=== PATIENT | female | born 1945 | race Caucasian/White ===

== ENCOUNTER 2017-01-12 09:47 | Inpatient (IN) | payer MEDICARE, OTHER ==
[~2017-01-12] VITALS: Ht 157.5 cm; Wt 111.4 kg
[2017-01-12] MEDS ORDERED: LEVO25TA2 PO (10:08)
[2017-01-12] MEDS ORDERED: SODIUM CHLORIDE 0.9% 1,000 ML IV ONE (10:11)
[2017-01-12] MEDS ORDERED: DILTIAZEM 125 MG in DEXTROSE 5% 100 ML IV SCH (10:11)
[2017-01-12] MEDS ORDERED: NITROGLYCERIN SINGLE TAB 0.4 MG SL ONE (10:17)
[2017-01-12] MEDS ORDERED: ONDANSETRON 2MG/ML, 2ML ONE (10:17)
[2017-01-12] MEDS ORDERED: ASPIRIN 81 MG TABLET CHEW PO ONE (10:30)
[2017-01-12] MEDS ORDERED: DILTIAZEM 5 MG/ML, 5ML IV ONE (10:30)
[2017-01-12] MEDS ORDERED: SODIUM CHLORIDE FLUSH 10ML SYR IVF ONE (10:30)
[2017-01-12] MEDS ORDERED: NITROGLYCERIN SINGLE TAB 0.4 MG SL PRN (10:30)
[2017-01-12] MEDS ORDERED: ONDANSETRON 2MG/ML, 2ML IVPush ONE (10:30)
[2017-01-12 10:54] LABS: BLOOD UREA NITROGEN 14 mg/dL (7-18)
[2017-01-12] MEDS ORDERED: OMNIPAQUE 350 MG/ML, 150 ML BOTTLE ONE (11:35)
[2017-01-12] MEDS ORDERED: SODIUM CHLORIDE FLUSH 10ML SYR IVF PRN (12:30)
[2017-01-12] MEDS ORDERED: ACETAMINOPHEN 325 MG TABLET PO PRN (13:00)
[2017-01-12] MEDS ORDERED: ONDANSETRON 2MG/ML, 2ML IVPush PRN (13:00)
[2017-01-12] MEDS ORDERED: ONDANSETRON ODT 4 MG PO PRN (13:00)
[2017-01-12] MEDS ORDERED: morphine SULFATE 10 MG/ML, 1ML IVPush PRN (13:00)
[2017-01-12] MEDS ORDERED: NITROGLYCERIN 0.4 MG/SPRAY SL PRN (14:00)
[2017-01-12] MEDS ORDERED: NITROGLYCERIN 0.4 MG BOTTLE (25 TABS) SL PRN (14:00)
[2017-01-12 14:20] VITALS: BP 181/101
[2017-01-12 14:21] LABS: IS PT STATUS REG ER OR PRE ER? NO
[2017-01-12] MEDS ORDERED: HEPARIN 5,000 UNITS/ML, 1ML IV PRN (14:30)
[2017-01-12] MEDS ORDERED: HEPARIN 5,000 UNITS/ML, 1ML IV ONE (14:30)
[2017-01-12] MEDS ORDERED: ALLO300T PO (14:41)
[2017-01-12] MEDS ORDERED: LEVO50TA PO (14:41)
[2017-01-12] MEDS ORDERED: ASA/500T PO (14:41)
[2017-01-12] MEDS ORDERED: CITA20TA9 PO (14:41)
[2017-01-12] MEDS ORDERED: LOVA40TA2 PO (14:41)
[2017-01-12] MEDS ORDERED: POTA20TA91 PO (14:41)
[2017-01-12] MEDS ORDERED: HYDR50TA3 PO (14:41)
[2017-01-12] MEDS ORDERED: ATEN50TA41 PO (14:41)
[2017-01-12] MEDS ORDERED: LEVO200T PO (14:41)
[2017-01-12] MEDS: ATENOLOL 50 MG TABLET PO SCH (14:48)
[2017-01-12] MEDS ORDERED: LABETALOL 5MG/ML, 20ML IVPush PRN (15:00)
[2017-01-12] MEDS: HEPARIN 25,000 UNITS/500ML PMX 500 ML IV PRN (15:07)
[2017-01-12 15:14] VITALS: BP 132/81
[2017-01-12] MEDS ORDERED: PHARMACY INSTRUCTION MC SCH (17:30)
[2017-01-12] MEDS ORDERED: PNEUMOCOCCAL 23 VACCINE IM-VACC ONE (19:00)
[2017-01-12 20:26] VITALS: BP 140/87
[2017-01-12] MEDS: LOVASTATIN 40 MG TABLET PO SCH (20:28)
[2017-01-12 21:15] LABS: IS PT STATUS REG ER OR PRE ER? NO
[2017-01-13] MEDS: DIPHENHYDRAMINE 25 MG CAPSULE PO PRN (00:17)
[2017-01-13 01:47] VITALS: BP 151/85
[2017-01-13 06:06] VITALS: BP 125/76
[2017-01-13] MEDS: ASPIRIN 81 MG TABLET EC PO SCH (06:18)
[2017-01-13 06:40] VITALS: BP 111/71
[2017-01-13] MEDS ORDERED: REGADENOSON 0.4 MG/5 ML SYRINGE ONE ×2 (08:02→08:17)
[2017-01-13] MEDS ORDERED: LEVOTHYROXINE 100 MCG INJ IVPush SCH (09:00)
[2017-01-13] MEDS: ATENOLOL 50 MG TABLET PO SCH (12:21)
[2017-01-13] MEDS: HEPARIN 25,000 UNITS/500ML PMX 500 ML IV PRN (12:32)
[2017-01-13 14:22] VITALS: BP 98/66
[2017-01-13] MEDS ORDERED: LABETALOL 5MG/ML, 20ML IVPush PRN (18:55)
[2017-01-13 19:23] VITALS: BP 117/77
[2017-01-13] MEDS: APIXABAN 5 MG TABLET PO SCH (20:56)
[2017-01-13] MEDS: LOVASTATIN 40 MG TABLET PO SCH (20:56)
[2017-01-14] MEDS: DIPHENHYDRAMINE 25 MG CAPSULE PO PRN (00:08)
[2017-01-14 01:13] VITALS: BP 120/80
[2017-01-14 05:38] LABS: BLOOD UREA NITROGEN 15 mg/dL (7-18)
[2017-01-14 06:00] VITALS: BP 111/77
[2017-01-14] MEDS: ATENOLOL 50 MG TABLET PO SCH (06:00)
[2017-01-14] MEDS ORDERED: LEVOTHYROXINE 125 MCG TABLET PO SCH (06:00)
[2017-01-14] MEDS: ASPIRIN 81 MG TABLET EC PO SCH (06:03)
[2017-01-14 06:10] LABS: IS PT STATUS REG ER OR PRE ER? NO
[2017-01-14 06:41] VITALS: BP 119/76
[2017-01-14] MEDS: APIXABAN 5 MG TABLET PO SCH (09:12)
[2017-01-14] MEDS ORDERED: APIX5TAB PO (11:16)
[2017-01-14] MEDS ORDERED: LEVO125T PO (11:16)
[2017-01-14] MEDS ORDERED: ASPI-621 PO ×2 (11:16→12:40)
[2017-01-14] MEDS ORDERED: CARV6.2512 PO (11:16)
[2017-01-14] MEDS ORDERED: LOVA40TA2 PO (11:16)
[2017-01-14] MEDS ORDERED: LEVOTHYROXINE SODIUM 200 MCG INJ IVPush SCH (11:30)
[2017-01-14] MEDS ORDERED: LEVOTHYROXINE 100 MCG INJ IVPush SCH (11:44)
[2017-01-14 12:14] VITALS: BP 161/82
[2017-01-14] MEDS ORDERED: ISOS30TA8 PO (12:26)
== END 2017-01-14 12:20 | disposition home or self-care (01) | DRG 309 ==
LOC: ED 12:16 → EDIP 12:17 → ED 12:42 → 5SO 13:59
PROVIDERS: ADMIT Internal Medicine; ATTEND Internal Medicine
DX: I48.0 Paroxysmal atrial fibrillation (principal); E44.1 Mild protein-calorie malnutrition; Z68.41 Body mass index [BMI] 40.0-44.9, adult; I48.92 Unspecified atrial flutter; R73.9 Hyperglycemia, unspecified; I10 Essential (primary) hypertension; E78.5 Hyperlipidemia, unspecified; F32.9 Major depressive disorder, single episode, unspecified; E78.1 Pure hyperglyceridemia; D86.9 Sarcoidosis, unspecified; E89.0 Postprocedural hypothyroidism; I25.10 Atherosclerotic heart disease of native coronary artery without angina pectoris; M10.9 Gout, unspecified; M54.2 Cervicalgia; Y83.8 Other surgical procedures as the cause of abnormal reaction of the patient, or of later complication, without mention of misadventure at the time of the procedure; Z80.1 Family history of malignant neoplasm of trachea, bronchus and lung; Z79.82 Long term (current) use of aspirin; Z82.3 Family history of stroke; Z90.710 Acquired absence of both cervix and uterus; Z91.14 Patient's other noncompliance with medication regimen; Z98.84 Bariatric surgery status
CPT/HCPCS: 36415; 71010; 71275; 78452; 80048; 80061; 82040; 83036; 83735; 83880; 84436; 84439; 84443; 84481; 84484; 85025; 85520; 85610; 85730; 93005; 93017; 93306; 96360; 96361; J1644; J2785; Q9967; A9502; C9898; J7030; Q0163

== ENCOUNTER 2019-11-11 15:04 | Observation (INO) | payer MEDICARE, OTHER ==
[~2019-11-11] VITALS: Ht 157.5 cm; Wt 111.1 kg
[~2019-11-11 15:04] MED LIST: ALLO300T PO; APIX5TAB PO; ASA/500T PO; ASPI81TA45 PO; ATEN50TA41 PO; CARV6.2512 PO; CITA20TA9 PO; HYDR50TA3 PO; ISOS30TA8 PO; LEVO125T PO; LEVO200T PO; LEVO25TA2 PO; LEVO50TA PO; LOVA40TA2 PO; POTA20TA91 PO
--- NOTE | 2019-11-11 15:30 | NUR ---
PT BIB [facility] TRANSFER FROM [facility]. PT STATES SHE WAS AWAKENED IN THE MIDDLE OF THE NIGHT WITH PALPATATIONS. PT WITH HISTORY OF AFIB WITH RVR. PT CONVERTED FROM AFIB TO [place] EN ROUTE TO [place], HOWEVER, WAS FOUND AT [place] TO HAVE ELEVATED TROPONIN. PT ARRIVES TO [facility] ED BY AMBULANCE IN NSR AND STABLE VS. PT ATTACHED TO VS AND CARDIAC MONITORS. DR BASSETT AT FOR PT HISTORY AND ASSESSMENT. PT PROVIDED CALL LIGHT AND WARM BLANKET. PT VERBALIZES UNDERSTANDING OF POC AND ER PROCESS AND DENIES ANY OTHER NEEDS AT THIS TIME.
--- NOTE | 2019-11-11 15:52 | NUR ---
LAB AT BS AT THIS TIME.
[2019-11-11] MEDS ORDERED: NITROGLYCERIN OINT 2%, 1GM TP ONE (16:00)
[2019-11-11] MEDS ORDERED: morphine SULFATE 10 MG/ML, 1ML IV PRN (16:30)
[2019-11-11] MEDS ORDERED: morphine SULFATE 10 MG/ML, 1ML IVPush PRN (16:30)
[2019-11-11] MEDS ORDERED: BACLOFEN 10 MG TABLET PO PRN (16:30)
[2019-11-11] MEDS ORDERED: ACETAMINOPHEN 325 MG TABLET PO PRN (16:30)
[2019-11-11] MEDS ORDERED: NITROGLYCERIN 0.4 MG/SPRAY SL PRN (16:30)
[2019-11-11] MEDS ORDERED: hydrALAzine 20 MG/ML, 1ML IV PRN (16:30)
[2019-11-11] MEDS ORDERED: NITROGLYCERIN 0.4 MG BOTTLE (25 TABS) SL PRN (16:30)
[2019-11-11 16:49] LABS: FREE T4 (FREE THYROXINE) 0.71 ng/dL (0.76-1.46)
[2019-11-11 17:47] VITALS: BP 156/66
[2019-11-11] MEDS ORDERED: HEPARIN 5,000 UNITS/ML, 1ML IV ONE (18:00)
[2019-11-11] MEDS ORDERED: HEPARIN 25,000 UNITS/250ML PMX 250 ML IV PRN (18:00)
[2019-11-11] MEDS ORDERED: HEPARIN 5,000 UNITS/ML, 1ML IV PRN (18:00)
[2019-11-11] MEDS: CARVEDILOL 6.25 MG TABLET PO SCH (18:28)
[2019-11-11 19:22] VITALS: BP 172/97
[2019-11-11] MEDS: ATORVASTATIN 40 MG TABLET PO SCH (19:47)
[2019-11-11] MEDS: SODIUM CHLORIDE FLUSH 10ML SYR IVF SCH (19:48)
[2019-11-11 19:53] VITALS: BP 156/98
[2019-11-11] MEDS ORDERED: LOVASTATIN 40 MG TABLET PO SCH (21:00)
[2019-11-12 02:41] VITALS: BP 131/86
[2019-11-12] MEDS: ASPIRIN 325 MG TABLET EC PO SCH (05:33)
[2019-11-12] MEDS: CARVEDILOL 6.25 MG TABLET PO SCH ×4 (05:33→21:50)
[2019-11-12] MEDS: LEVOTHYROXINE 200 MCG TABLET PO SCH (05:33)
[2019-11-12 06:40] VITALS: BP 146/84
[2019-11-12] MEDS: SODIUM CHLORIDE FLUSH 10ML SYR IVF SCH ×2 (08:49→21:51)
[2019-11-12] MEDS: LISINOPRIL 20 MG TABLET PO SCH (08:49)
[2019-11-12] MEDS: ESCITALOPRAM 10MG TABLET PO SCH (08:50)
[2019-11-12] MEDS ORDERED: HYDROCHLOROTHIAZIDE 25 MG TABLET PO SCH (09:00)
[2019-11-12 09:03] LABS: CALCIUM 8.2 mg/dL (8.5-10.1); CHLORIDE 109 mmol/L (98-107)
[2019-11-12 09:09] LABS: ANION GAP 5 mmol/L (5-15); CHOL/HDL RATIO 2.9; CHOLESTEROL, TOTAL 176 mg/dL (140-239); CREATININE 0.77 mg/dL (0.55-1.02); HDL CHOL % 34 % (28-40); HDL CHOLESTEROL (DIRECT) 60 mg/dL (40-60); LDL CHOLESTEROL,CALCULATED 79 mg/dL (54-169); LDL/HDL RATIO 1.3 (0.5-3.0); TRIGLYCERIDES 187 mg/dL (50-200); VLDL CHOLESTEROL 37 mg/dL (0-25)
[2019-11-12] MEDS ORDERED: OXYMETAZOLINE NASAL SPRAY 0.05%, 15ML NAS PRN (09:30)
[2019-11-12] MEDS ORDERED: SODIUM CHLORIDE 0.9% 1,000 ML IV SCH (11:00)
[2019-11-12 12:10] VITALS: BP 153/82
[2019-11-12] MEDS ORDERED: FENTANYL PF 100 MCG/2ML ONE (13:46)
[2019-11-12] MEDS ORDERED: HEPARIN 1,000 UNITS/ML, 10ML ONE (13:46)
[2019-11-12] MEDS ORDERED: BIVALIRUDIN 250 MG ONE (13:46)
[2019-11-12] MEDS ORDERED: VERAPAMIL 2.5 MG/ML, 2ML ONE (13:46)
[2019-11-12] MEDS ORDERED: MIDAZOLAM 1 MG/ML, 5ML ONE (13:46)
[2019-11-12] MEDS ORDERED: LIDOCAINE-MPF 1%, 5ML ONE (13:46)
[2019-11-12] MEDS ORDERED: LIDOCAINE 2%, 20ML ONE (14:30)
[2019-11-12] MEDS: SODIUM CHLORIDE 0.9% 1,000 ML IV SCH ×3 (16:34→21:51)
[2019-11-12] MEDS ORDERED: FLU VACC QS2019-20 36MOS UP/PF 0.5 ML IM-VACC ONE (19:30)
[2019-11-12 19:44] VITALS: BP 138/82
[2019-11-12] MEDS ORDERED: TEMAZEPAM 15 MG CAPSULE ONE (21:47)
[2019-11-12] MEDS: ATORVASTATIN 40 MG TABLET PO SCH (21:50)
[2019-11-12] MEDS ORDERED: TEMAZEPAM 15 MG CAPSULE PO PRN (22:00)
[2019-11-13 00:24] VITALS: BP 145/81
[2019-11-13 04:31] LABS: BASOPHILS # (AUTO) 0.03 x10^3/uL (0-0.1); BASOPHILS % (AUTO) 1 % (0-1); EOSINOPHILS # (AUTO) 0.09 x10^3/uL (0-0.4); EOSINOPHILS % (AUTO) 2 % (1-7); LYMPHOCYTES # (AUTO) 0.82 x10^3/uL (1-3.4); LYMPHOCYTES % (AUTO) 18 % (22-44); MD NO; MEAN CORPUSCULAR HEMOGLOBIN 32.4 pg (27.0-34.8); MEAN CORPUSCULAR HGB CONC 33.9 g/dL (32.4-35.8); MEAN CORPUSCULAR VOLUME 95.7 fL (80-100); MEAN PLATELET VOLUME 9.3 fL (7.4-10.4); MONOCYTES # (AUTO) 0.47 x10^3/uL (0.2-0.8); MONOCYTES % (AUTO) 10 % (2-9); NEUTROPHILS # (AUTO) 3.22 x10^3/uL (1.8-6.8); NEUTROPHILS % (AUTO) 70 % (42-75); PLATELET COUNT 238 x10^3/uL (130-400); RED BLOOD COUNT 3.33 x10^6/uL (3.82-5.3); RED CELL DISTRIBUTION WIDTH 15.9 % (9.6-15.2)
[2019-11-13 04:44] LABS: ANION GAP 4 mmol/L (5-15); CHLORIDE 111 mmol/L (98-107); CREATININE 0.69 mg/dL (0.55-1.02)
[2019-11-13] MEDS: LEVOTHYROXINE 200 MCG TABLET PO SCH (06:09)
[2019-11-13] MEDS: ASPIRIN 325 MG TABLET EC PO SCH (06:10)
[2019-11-13 06:58] VITALS: BP 143/91
[2019-11-13] MEDS: ESCITALOPRAM 10MG TABLET PO SCH (08:49)
[2019-11-13] MEDS: LISINOPRIL 20 MG TABLET PO SCH (08:50)
[2019-11-13] MEDS: SODIUM CHLORIDE FLUSH 10ML SYR IVF SCH (08:50)
[2019-11-13] MEDS: CARVEDILOL 6.25 MG TABLET PO SCH (08:50)
[2019-11-13] MEDS ORDERED: LISI-170 PO (09:12)
[2019-11-13] MEDS ORDERED: CITA20TA9 PO (09:12)
[2019-11-13] MEDS ORDERED: APIX5TAB PO (09:12)
[2019-11-13] MEDS ORDERED: LEVO125T PO (09:12)
[2019-11-13] MEDS ORDERED: ATOR40TA78 PO (09:12)
[2019-11-13] MEDS ORDERED: CARV6.2512 PO ×2 (09:12)
[2019-11-13] MEDS ORDERED: APIXABAN 5 MG TABLET PO SCH (09:30)
[2019-11-13] MEDS ORDERED: CARVEDILOL 6.25 MG TABLET PO SCH (10:00)
[2019-11-13] MEDS ORDERED: CARVEDILOL 6.25 MG TABLET PO ONE (10:00)
[2019-11-13] MEDS ORDERED: CARVEDILOL 12.5 MG TABLET PO SCH (10:00)
[2019-11-13] MEDS ORDERED: CARV12.52 PO (11:31)
== END 2019-11-13 11:50 | disposition home or self-care (01) ==
LOC: SUATTDRO 15:41 → ED 15:52 → EDIP 16:05 → 5SO 17:42
PROVIDERS: ADMIT Hospitalist; ATTEND Hospitalist
DX: I48.19 Other persistent atrial fibrillation (principal); I10 Essential (primary) hypertension; E78.5 Hyperlipidemia, unspecified; F32.9 Major depressive disorder, single episode, unspecified; E89.0 Postprocedural hypothyroidism; R32 Unspecified urinary incontinence; M10.9 Gout, unspecified; D68.69 Other thrombophilia; I25.10 Atherosclerotic heart disease of native coronary artery without angina pectoris; I45.10 Unspecified right bundle-branch block; I35.8 Other nonrheumatic aortic valve disorders; D64.9 Anemia, unspecified; I21.4 Non-ST elevation (NSTEMI) myocardial infarction; E66.01 Morbid (severe) obesity due to excess calories; I45.2 Bifascicular block; Z90.710 Acquired absence of both cervix and uterus
CPT/HCPCS: 36415; 71045; 80048; 80061; 83735; 83880; 84439; 84443; 84484; 85025; 85520; 93005; 93306; 93458; 96374; 96375; 96376; 99156; 99157; 99285; C1760; C1769; C1894; G0378; J0583; J1644; J2250; J2270; J3010; J3490; J7030; Q9967

== ENCOUNTER 2021-03-16 08:32 | Inpatient (IN) | payer MEDICARE, OTHER ==
[~2021-03-16] VITALS: Ht 157.5 cm; Wt 116.0 kg
[~2021-03-16 08:32] MED LIST changes: +ATOR40TA78 PO; +CARV12.52 PO; -HYDR50TA3 PO; +HYDR50TA6 PO; +LISI-170 PO
[2021-03-16] MEDS ORDERED: DILTIAZEM 5 MG/ML, 5ML ONE ×2 (08:42→09:10)
--- NOTE | 2021-03-16 08:50 | NUR ---
PT IN HOSPITAL GOWN. PT PLACED ON VITALS AND CARDIAC MONITORS. PT DENYING CHEST PAIN AT THIS TIME. WILL CONTINUE TO MONITOR. PT HR SHOWING A-FIB AT 180. ERP AWARE, PT MEDICATED PER EMAR.
[2021-03-16] MEDS ORDERED: SODIUM CHLORIDE FLUSH 10ML SYR IVF ONE (09:00)
[2021-03-16] MEDS ORDERED: DILTIAZEM 5 MG/ML, 5ML IV ONE (09:00)
[2021-03-16 09:14] LABS: ALBUMIN 3.2 g/dL (3.4-5.0); ANION GAP 10 mmol/L (5-15); CHLORIDE 113 mmol/L (98-107)
[2021-03-16 09:17] LABS: ALANINE AMINOTRANSFERASE 23 U/L (12-78); BILIRUBIN,TOTAL 0.2 mg/dL (0.2-1.0); CREATININE 0.68 mg/dL (0.55-1.02); TOTAL PROTEIN 6.8 g/dL (6.4-8.2); TROPONIN I < 0.015 ng/mL (0.000-0.045)
--- NOTE | 2021-03-16 09:20 | NUR ---
PT HR AT 120-150. PT MEDICATED AGAIN WITH ORDERED MEDS.
[2021-03-16 09:23] LABS: ALKALINE PHOSPHATASE 76 U/L (45-117); T4 (THYROXINE) 10.1 mcg/dL (4.8-13.9)
[2021-03-16] MEDS ORDERED: DILTIAZEM 5 MG/ML, 5ML IVPush ONE (09:30)
[2021-03-16 09:47] LABS: BASOPHILS % (AUTO) 1 % (0-1); EOSINOPHILS % (AUTO) 1 % (1-7); LYMPHOCYTES % (AUTO) 15 % (22-44); MEAN CORPUSCULAR HGB CONC 33.4 g/dL (32.4-35.8); MEAN PLATELET VOLUME 8.9 fL (7.4-10.4); MONOCYTES % (AUTO) 8 % (2-9); NEUTROPHILS % (AUTO) 76 % (42-75); PLATELET COUNT 260 x10^3/uL (130-400); RED BLOOD COUNT 3.99 x10^6/uL (3.82-5.3); RED CELL DISTRIBUTION WIDTH 16.2 % (9.6-15.2)
[2021-03-16] MEDS ORDERED: ASPI-963 PO (10:07)
[2021-03-16] MEDS ORDERED: HYDR50TA6 PO (10:07)
[2021-03-16] MEDS ORDERED: ACET650S21 PO (10:07)
[2021-03-16] MEDS ORDERED: CLOP75TA PO (10:07)
[2021-03-16] MEDS ORDERED: ATOR40TA PO (10:07)
[2021-03-16] MEDS ORDERED: LEVO200T5 PO (10:07)
[2021-03-16] MEDS ORDERED: MAGNESIUM PO (10:07)
--- NOTE | 2021-03-16 10:17 | NUR ---
PT RESTING CALMLY IN BED AT THIS TIME. HR AROUND [phone]. PT TO BE ADMITTED. PT SON NAME LOIS Jones
[2021-03-16] MEDS ORDERED: SODIUM CHLORIDE FLUSH 10ML SYR IVF PRN (11:00)
[2021-03-16] MEDS ORDERED: METOPROLOL TARTRATE 50 MG TAB ONE (11:48)
[2021-03-16] MEDS: DILTIAZEM 125 MG in SODIUM CHLORIDE 0.9% 100 ML IV SCH ×2 (11:51→22:27)
[2021-03-16] MEDS ORDERED: ACETAMINOPHEN 650 MG/20.3 ML UDC PO PRN (12:00)
[2021-03-16] MEDS ORDERED: METOPROLOL TARTRATE 50 MG TAB PO ONE (12:00)
[2021-03-16] MEDS ORDERED: ACETAMINOPHEN 325 MG TABLET PO PRN (12:00)
[2021-03-16] MEDS ORDERED: ONDANSETRON 2MG/ML, 2ML IVPush PRN (12:00)
[2021-03-16] MEDS ORDERED: POLYETHYLENE GLYCOL 17 GM PACKET PO PRN (12:00)
--- NOTE | 2021-03-16 12:51 | NUR ---
REPORT TO FRANCISCO PIERRE
[2021-03-16] MEDS ORDERED: APIXABAN 5 MG TABLET ONE (13:16)
[2021-03-16] MEDS: CITALOPRAM 20 MG TABLET PO SCH (13:21)
[2021-03-16] MEDS: APIXABAN 5 MG TABLET PO SCH ×2 (13:21→20:30)
[2021-03-16] MEDS: CLOPIDOGREL 75 MG TABLET PO SCH ×2 (13:21→20:30)
[2021-03-16 13:24] VITALS: BP 130/86
[2021-03-16 13:25] VITALS: BP 130/86
[2021-03-16 16:51] LABS: TROPONIN I 0.091 ng/mL (0.000-0.045)
[2021-03-16] MEDS: CARVEDILOL 12.5 MG TABLET PO SCH (17:45)
[2021-03-16 20:24] VITALS: BP 126/76
[2021-03-16] MEDS: ATORVASTATIN 80 MG TABLET PO SCH (20:30)
[2021-03-16] MEDS: TEMAZEPAM 15 MG CAPSULE PO PRN (22:26)
[2021-03-16 22:43] LABS: TROPONIN I 0.101 ng/mL (0.000-0.045)
[2021-03-17 02:10] VITALS: BP 126/93
[2021-03-17 05:37] VITALS: BP 100/62
[2021-03-17] MEDS: LEVOTHYROXINE 200 MCG TABLET PO SCH (05:38)
[2021-03-17] MEDS: CARVEDILOL 12.5 MG TABLET PO SCH (05:39)
[2021-03-17 05:50] LABS: TROPONIN I 0.099 ng/mL (0.000-0.045)
[2021-03-17] MEDS: APIXABAN 5 MG TABLET PO SCH ×2 (08:41→21:42)
[2021-03-17] MEDS: CLOPIDOGREL 75 MG TABLET PO SCH ×2 (08:41→21:42)
[2021-03-17] MEDS: CITALOPRAM 20 MG TABLET PO SCH (08:41)
[2021-03-17] MEDS: SENNA/DOCUSATE TABLET PO SCH (08:42)
[2021-03-17 08:45] VITALS: BP 95/63
[2021-03-17 14:41] VITALS: BP 109/74
[2021-03-17] MEDS: CARVEDILOL 25 MG TABLET PO SCH (17:10)
[2021-03-17] MEDS ORDERED: DIGOXIN 0.25 MG/ML, 2ML IVPush PRN (18:00)
[2021-03-17 21:36] VITALS: BP 103/58
[2021-03-17] MEDS: ATORVASTATIN 80 MG TABLET PO SCH (21:42)
[2021-03-17] MEDS: TEMAZEPAM 15 MG CAPSULE PO PRN ×2 (22:00→23:08)
[2021-03-17] MEDS ORDERED: FILTER 0.22 MICRON IV PRN (23:30)
[2021-03-17] MEDS ORDERED: AMIODARONE 150 MG in DEXTROSE 5% 100 ML IV ONE (23:30)
[2021-03-17] MEDS ORDERED: METOPROLOL 1 MG/ML, 5ML IVPush ONE (23:30)
[2021-03-17] MEDS ORDERED: SODIUM CHLORIDE 0.9%, 500ML IVBOLUS ONE (23:30)
[2021-03-17] MEDS ORDERED: AMIODARONE 450 MG in DEXTROSE 5% 241 ML IV PRN (23:30)
[2021-03-18 02:03] VITALS: BP 101/70
[2021-03-18 04:46] LABS: BASOPHILS % (AUTO) 1 % (0-1); EOSINOPHILS % (AUTO) 1 % (1-7); LYMPHOCYTES % (AUTO) 19 % (22-44); MEAN CORPUSCULAR HEMOGLOBIN 31.5 pg (27.0-34.8); MEAN CORPUSCULAR HGB CONC 33.8 g/dL (32.4-35.8); MEAN PLATELET VOLUME 9.3 fL (7.4-10.4); MONOCYTES % (AUTO) 12 % (2-9); NEUTROPHILS % (AUTO) 67 % (42-75); PLATELET COUNT 198 x10^3/uL (130-400); RED BLOOD COUNT 3.43 x10^6/uL (3.82-5.3); RED CELL DISTRIBUTION WIDTH 16.3 % (9.6-15.2)
[2021-03-18 04:52] LABS: ANION GAP 3 mmol/L (5-15); CALCIUM 8.2 mg/dL (8.5-10.1); CHLORIDE 110 mmol/L (98-107)
[2021-03-18 04:54] LABS: CREATININE 0.64 mg/dL (0.55-1.02)
[2021-03-18] MEDS: LEVOTHYROXINE 200 MCG TABLET PO SCH (06:18)
[2021-03-18 06:20] VITALS: BP 112/73
[2021-03-18] MEDS: CARVEDILOL 25 MG TABLET PO SCH ×2 (06:39→17:52)
[2021-03-18 06:49] VITALS: BP 119/74
[2021-03-18] MEDS: SENNA/DOCUSATE TABLET PO SCH (09:18)
[2021-03-18] MEDS: CLOPIDOGREL 75 MG TABLET PO SCH ×2 (09:18→21:21)
[2021-03-18] MEDS: APIXABAN 5 MG TABLET PO SCH ×2 (09:18→21:21)
[2021-03-18] MEDS: CITALOPRAM 20 MG TABLET PO SCH (09:18)
[2021-03-18] MEDS ORDERED: REGADENOSON 0.4 MG/5 ML SYRINGE ONE (10:41)
[2021-03-18 12:54] VITALS: BP 119/78
[2021-03-18] MEDS: AMIODARONE 200 MG TABLET PO SCH ×2 (14:04→21:21)
[2021-03-18 17:51] VITALS: BP 123/79
[2021-03-18 21:13] VITALS: BP 161/88
[2021-03-18] MEDS: ATORVASTATIN 80 MG TABLET PO SCH (21:21)
[2021-03-18] MEDS: TEMAZEPAM 15 MG CAPSULE PO PRN ×2 (21:25→22:53)
[2021-03-19 03:50] VITALS: BP 132/74
[2021-03-19 05:25] LABS: BASOPHILS % (AUTO) 1 % (0-1); EOSINOPHILS % (AUTO) 1 % (1-7); LYMPHOCYTES % (AUTO) 15 % (22-44); MEAN CORPUSCULAR HEMOGLOBIN 31.4 pg (27.0-34.8); MEAN CORPUSCULAR HGB CONC 33.7 g/dL (32.4-35.8); MEAN PLATELET VOLUME 9.6 fL (7.4-10.4); MONOCYTES % (AUTO) 14 % (2-9); NEUTROPHILS % (AUTO) 69 % (42-75); PLATELET COUNT 196 x10^3/uL (130-400); RED BLOOD COUNT 3.36 x10^6/uL (3.82-5.3); RED CELL DISTRIBUTION WIDTH 16.1 % (9.6-15.2)
[2021-03-19 06:25] VITALS: BP 130/82
[2021-03-19] MEDS: CARVEDILOL 25 MG TABLET PO SCH (06:25)
[2021-03-19] MEDS: LEVOTHYROXINE 200 MCG TABLET PO SCH (06:25)
[2021-03-19] MEDS ORDERED: APIX5TAB PO (07:53)
[2021-03-19] MEDS ORDERED: AMIO200T42 PO (07:53)
[2021-03-19] MEDS ORDERED: CARV25TA12 PO (07:53)
[2021-03-19] MEDS ORDERED: ATOR40TA PO (07:53)
[2021-03-19] MEDS ORDERED: LEVO200T5 PO (07:53)
[2021-03-19] MEDS ORDERED: CLOP75TA PO (07:53)
[2021-03-19] MEDS ORDERED: CITA20TA9 PO (07:53)
[2021-03-19 08:10] VITALS: BP 133/82
[2021-03-19] MEDS: AMIODARONE 200 MG TABLET PO SCH (08:14)
[2021-03-19] MEDS: CLOPIDOGREL 75 MG TABLET PO SCH (08:14)
[2021-03-19] MEDS: APIXABAN 5 MG TABLET PO SCH (08:14)
[2021-03-19] MEDS: SENNA/DOCUSATE TABLET PO SCH (08:14)
[2021-03-19] MEDS: CITALOPRAM 20 MG TABLET PO SCH (08:14)
== END 2021-03-19 12:57 | disposition home or self-care (01) | DRG 280 ==
LOC: MERGE 08:32 → ED 09:21 → INTOOBSV 10:57 → OBSVTOIN 10:57 → EDIP 10:57 → SUATTDRO 11:07 → 5SO 13:14
PROVIDERS: ADMIT Internal Medicine; ATTEND Family Medicine
DX: I48.20 Chronic atrial fibrillation, unspecified (principal); J96.01 Acute respiratory failure with hypoxia; I21.A1 Myocardial infarction type 2; Z68.42 Body mass index [BMI] 45.0-49.9, adult; I25.10 Atherosclerotic heart disease of native coronary artery without angina pectoris; G47.30 Sleep apnea, unspecified; Z66 Do not resuscitate; E11.65 Type 2 diabetes mellitus with hyperglycemia; E66.01 Morbid (severe) obesity due to excess calories
CPT/HCPCS: 36415; 71045; 78452; 80048; 80053; 82962; 83036; 83735; 83880; 84436; 84443; 84484; 85025; 93005; 93017; 96374; 96375; G0378; J2405; J2785; J7060; A9502; J0282; J1160; J7040